=== PATIENT | male | born 1960 ===

== ENCOUNTER 2017-02-04 01:43 | Inpatient (IN) ==
[2017-02-04 02:33] LABS: MANUAL DIFF NEEDED? NO
[2017-02-04 02:36] LABS: BASO% 0.3 % (0.0-0.8); EOS# 0.14 X1000 (0.0-0.7); EOS% 0.8 % (0.0-10.0); HEMATOCRIT 45.9 % (42.0-52.0); HEMOGLOBIN 15.6 g/dL (14.0-18.0); IMM GRAN# 0.08 X1000 (0.0-0.04); IMM GRAN% 0.4 % (0.0-0.5); LYMPH# 3.26 X1000 (1.2-3.4); LYMPH% 17.6 % (20.5-51.1); MCV 88.3 FL (81-99); MONO# 1.81 X1000 (0.11-0.59); MONO% 9.8 % (1.7-9.3); MPV 10.4 FL (7.4-10.4); NEUT% 71.1 % (42.2-75.2); PLT 360 X1000 (130-400)
[2017-02-04 03:02] LABS: AGAP 24; ALBUMIN 4.3 g/dL (3.5-5.0); ALKALINE PHOSPHATASE 82 U/L (32-122); BUN 44 mg/dL (8-22); CALCIUM 9.4 mg/dL (8.8-10.2); CHLORIDE 92 mmol/L (98-107); COSMO 290; GOT 82 U/L (10-34); GPT 62 U/L (10-44); POTASSIUM 3.5 mmol/L (3.5-5.1); SODIUM 137 mmol/L (136-145); TCO2 21 mmol/L (25-35); TOTAL BILIRUBIN 1.45 mg/dL (0.20-1.00); TOTAL PROTEIN 8.8 g/dL (6.3-8.3)
[2017-02-04 03:46] LABS: FREE T4 2.09 ng/dL (0.93-1.70)
[2017-02-04] MEDS ORDERED: ADENOCARD IV ONE ×2 (04:00→04:13)
[2017-02-04] MEDS ORDERED: ADENOCARD ONE (04:01)
[2017-02-04] MEDS ORDERED: NS 3,000 ML ONE (04:03)
[2017-02-04 04:12] LABS: URINE SOURCE CLEAN CATCH
[2017-02-04] MEDS ORDERED: NS 2,000 ML IV ONE (04:13)
[2017-02-04 04:19] LABS: BILIRUBIN URINE NEGATIVE (NEGATIVE); BLOOD URINE TRACE (NEGATIVE); COLOR YELLOW; GLUCOSE URINE NEGATIVE (NEGATIVE); LEUKOCYTES URINE NEGATIVE (NEGATIVE); NITRITE URINE NEGATIVE (NEGATIVE); PH URINE 5.5; PROTEIN URINE 100 mg/dL (NEGATIVE); SP GRAVITY URINE 1.019; TURBIDITY URINE HAZY (CLEAR); UROBILINOGEN URINE NORMAL (NORMAL)
[2017-02-04 04:26] LABS: UR EPITHELIAL CELLS <10 /HPF (<10); URINE BACTERIA NEGATIVE /HPF; URINE CULTURE NEEDED? YES; URINE MICRO REVIEW NEEDED? YES; URINE RBC <10 /HPF (<10); URINE WBC TNTC /HPF (<10)
[2017-02-04 04:32] LABS: URINE CASTS NONE SEEN; URINE CRYSTALS NONE SEEN; URINE SMALL ROUND CELLS NONE SEEN
[2017-02-04 04:40] LABS: UR AMPHETAMINES QUAL PRESUMPTIVE POSITIVE (NONE DETECT); UR BARBITUATES QUAL NONE DETECTED (NONE DETECT); UR BENZODIAZEPIN QUAL NONE DETECTED (NONE DETECT); UR CANNABINOIDS QUAL NONE DETECTED (NONE DETECT); UR COCAINE QUAL NONE DETECTED (NONE DETECT); UR METHADONE QUAL NONE DETECTED (NONE DETECT); UR OPIATES QUAL NONE DETECTED (NONE DETECT); UR OXYCODONE QUAL NONE DETECTED (NONE DETECT); UR PCP QUAL NONE DETECTED (NONE DETECT)
[2017-02-04] MEDS ORDERED: NS 1,000 ML IV ONE (04:53)
--- NOTE | 2017-02-04 05:29 | EKG Report ---
Test Performed on : 02/04/2017 04:06:43 AM Test Reason : No Order in Visitar Blood Pressure : / mmHG Vent. Rate : 084 BPM Atrial Rate : 084 BPM P-R Int : 148 ms QRS Dur : 084 ms QT Int : 386 ms P-R-T Axes : 059 -51 060 degrees QTc Int : 456 ms Normal sinus rhythm. Left axis deviation Nonspecific ST abnormality Abnormal ECG When compared with ECG of 04-FEB-2017 03:57, (Unconfirmed) Vent. rate has decreased BY 78 BPM Criteria for Lateral infarct are no longer present T wave inversion no longer evident in Lateral leads Unconfirmed Result
--- NOTE | 2017-02-04 05:30 | PROVIDER DOCUMENTATION ---
HPI-Cardiac General - General Chief Complaint: General Adult Stated Complaint: general Time Seen by Provider: 02/04/17 03:27 Allergies/Adverse Reactions: Patient Allergies Allergy/AdvReac Type Severity Reaction Status Date / Time No Known Allergies Allergy Verified 02/27/16 10:30 Home Medications: Home Medication List Medication Instructions Recorded Confirmed Last Taken Type Albuterol Sulfate [Ventolin Hfa] 2 puff INH BID 02/15/14 02/04/17 02/03/17 History LISINOpril [Prinivil] 10 mg PO DAILY 02/15/14 02/04/17 02/03/17 History Albuterol 2.5MG/Ipratrop 0.5MG 3 ml INH RTQ4H #0 neb 02/19/14 02/04/17 Unknown Rx [Duoneb (A & A)] Metformin [Glucophage] 500 mg PO BID CC #0 tablet 10/17/14 02/04/17 02/03/17 Rx Insulin Humulin 70/30 [Humulin 34 unit SUBQ DAILY 02/27/16 02/04/17 02/03/17 History 70/30] Budesonide/Formoterol Fumarate 1 puff INH BID 02/04/17 02/04/17 02/03/17 History [Symbicort 160-4.5 Mcg Inhaler] - History of Present Illness-Cardiac Nature of Presenting Problem: This 56 yo white, obese male presents stating that he thought that he took LSD. he went into SVT and was converted with 12 mg of adenosine, had a creatitine of 5 and was given a fluid bolus for low BP and was finally stabalized. his renal insufficiency is new Review of Systems - Adult - REVIEW OF SYSTEMS - ADULT Constitutional: denies: chills, fever, night sweats Eyes: denies: discharge, blurred vision Ears, Nose, Mouth & Throat: denies: ear discharge, hearing loss, nose pain, throat pain Cardiovascular: denies: chest pain, heart murmur, syncope Respiratory: denies: chronic cough, dyspnea on exertion, pleurisy Gastrointestinal: denies: constipation, diarrhea, frequent heartburn Genitourinary: denies: dysuria, frequent UTI's, hesitency Musculoskeletal: denies: bone pain, joint pain, neck pain Integumentary: denies: hives, itching, nail changes Neurological: reports: no symptoms reported. denies: ataxia, paresthesia, slurred speech Psychiatric: reports: no symptoms reported. denies: anxiety, insomnia, panic attacks Endocrine: denies: goiter, cold intolerance, heat intolerance Hematologic/Lymphatic: denies: low blood count, lymphedema Allergic/Immunologic: denies: allergic reactions, eczema, frequent infections Past History - Adult - PAST MEDICAL HISTORY-ADULT Review of Records: reports: Nursing Assessment Review, Medications Reviewed Major Childhood Illnesses: reports: denies history Cardiovascular: reports: HTN Respiratory: reports: COPD Gastrointestinal: reports: denies history Genitourinary: reports: denies history Musculoskeletal: reports: denies history Neurological: reports: CVA Endocrine/Immune: reports: Diabetes Other Conditions: reports: denies history Additional History: Respitory failure; VRE penis 2014 - PRIOR SURGERIES/PROCEDURES Surgical/Procedure History: reports: other (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) - PRIOR HOSPITALIZATIONS Prior Hospitalizations: reports: for similar symptoms - IMMUNIZATION STATUS Childhood Immunizations: NUTD Flu Vaccine: NUTD - FAMILY HISTORY Family History: reviewed, not pertinent Physical Exam-General - PHYSICAL EXAM-ADULT Initial Vital Signs Reviewed: Yes - CONSTITUTIONAL General Appearance: appears well, alert, no apparent distress - EYES Eyes: PERRL/EOMI, pink conjunctivae - HEAD, EARS, NOSE, MOUTH & THROAT HENMT: normocephalic/atraumatic, moist mucous membranes, normal ENT inspection - NECK Neck: non-tender, full range of motion, supple, normal inspection - RESPIRATORY Respiratory: chest non-tender, lungs clear, normal breath sounds, no pleuratic chest pain, no respiratory distress, no accessory muscle use - CARDIOVASCULAR Cardiovascular: normal peripheral pulses, regular rate, rhythm, no edema, no gallop, no JVD, no murmur - GASTROINTESTINAL (ABDOMEN) Abdominal Exam: normal bowel sounds, non tender, soft, no organomegaly, no pulsatile mass, distended - LYMPHATIC Lymphatic: no adenopathy - MUSCULOSKELETAL Back Exam: normal inspection, no CVA tenderness, no vertebral tenderness Extremity: normal range of motion, non-tender, normal gait - SKIN Integumentary: normal color, normal turgor, warm/dry - NEUROLOGIC Neurologic: 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 II-XII nml as tested, grossly normal, no motor/sensory deficits Progress - PLAN OF CARE/RESULTS Progress/Plan/Lab Results: Vital Signs - 8 hr 02/04/17 01:55 02/04/17 03:30 02/04/17 04:05 Temperature 97.5 F L Pulse Rate 84 171 H 159 H Respiratory Rate 22 23 30 H Blood Pressure 129/84 143/120 173/77 O2 Sat by Pulse Oximetry 93 L 90 L 86 L 02/04/17 04:08 02/04/17 04:09 02/04/17 04:10 Temperature Pulse Rate 158 H 85 86 Respiratory Rate 21 20 23 Blood Pressure 173/77 83/56 83/56 O2 Sat by Pulse Oximetry 96 96 96 02/04/17 04:20 02/04/17 04:30 02/04/17 04:44 Temperature Pulse Rate 83 81 82 Respiratory Rate 28 H 22 18 Blood Pressure 74/56 60/38 93/39 O2 Sat by Pulse Oximetry 96 92 L 95 02/04/17 05:11 Temperature Pulse Rate 86 Respiratory Rate 16 Blood Pressure 106/77 O2 Sat by Pulse Oximetry 96 Laboratory Results - last 24 hr 02/04/17 02/04/17 02/04/17 00:00 00:00 01:58 WBC RBC Hgb Hct MCV MCH MCHC RDW Std Deviation Plt Count MPV Immature Gran % (Auto) Neut % (Auto) Lymph % (Auto) [place] % (Auto) Eos % (Auto) Baso % (Auto) Immature Gran # (Auto) Neut # (Auto) Lymph # (Auto) [place] # (Auto) Eos # (Auto) Baso # (Auto) Sodium Potassium Chloride Carbon Dioxide Anion Gap BUN Creatinine BUN/Creatinine Ratio Glucose POC Glucose 174 H Calculated Osmolality Calcium Total Bilirubin AST ALT Alkaline Phosphatase Total Protein Albumin Globulin Albumin/Globulin Ratio Vitamin B12 TSH Free T4 Urine Source CLEAN CATCH Urine Color YELLOW Urine Turbidity HAZY Urine pH 5.5 Ur Specific Sun 1.019 Urine Protein 100 A Ur Glucose (Stick) NEGATIVE Ur Ketones (Stick) NEGATIVE Urine Blood TRACE A Urine Nitrite NEGATIVE Urine Bilirubin NEGATIVE Urobilinogen Dipstick NORMAL Urine Leukocytes NEGATIVE Urine WBC (Auto) TNTC A Urine RBC (Auto) <10 U Epithel Cells (Auto) <10 Urine Bacteria (Auto) NEGATIVE Urine Crystals NONE SEEN Small Round Cells NONE SEEN Urine Casts NONE SEEN Urine Yeast-like Cells NONE SEEN Urine Opiates Screen NONE DETECTED Ur Oxycodone Screen NONE DETECTED Ur Methadone, Qual NONE DETECTED Ur Barbiturates Screen NONE DETECTED Ur Phencyclidine Scrn NONE DETECTED Ur Amphetamines Screen PRESUMPTIVE POSITIVE A U Benzodiazepines Scrn NONE DETECTED Urine Cocaine Screen NONE DETECTED U Cannabinoids Screen NONE DETECTED Plasma/Serum Ethyl Alc 02/04/17 02/04/17 02/04/17 02:00 02:00 02:00 WBC RBC Hgb Hct MCV MCH MCHC RDW Std Deviation Plt Count MPV Immature Gran % (Auto) Neut % (Auto) Lymph % (Auto) [place] % (Auto) Eos % (Auto) Baso % (Auto) Immature Gran # (Auto) Neut # (Auto) Lymph # (Auto) [place] # (Auto) Eos # (Auto) Baso # (Auto) Sodium 137 Potassium 3.5 Chloride 92 L Carbon Dioxide 21 L Anion Gap 24 BUN 44 H Creatinine 3.4 H BUN/Creatinine Ratio 13 Glucose 181 H POC Glucose Calculated Osmolality 290 Calcium 9.4 Total Bilirubin 1.45 H AST 82 H ALT 62 H Alkaline Phosphatase 82 Total Protein 8.8 H Albumin 4.3 Globulin 4.5 Albumin/Globulin Ratio 1.0 Vitamin B12 321 TSH 5.13 H Free T4 2.09 H Urine Source Urine Color Urine Turbidity Urine pH Ur Specific Sun Urine Protein Ur Glucose (Stick) Ur Ketones (Stick) Urine Blood Urine Nitrite Urine Bilirubin Urobilinogen Dipstick Urine Leukocytes Urine WBC (Auto) Urine RBC (Auto) U Epithel Cells (Auto) Urine Bacteria (Auto) Urine Crystals Small Round Cells Urine Casts Urine Yeast-like Cells Urine Opiates Screen Ur Oxycodone Screen Ur Methadone, Qual Ur Barbiturates Screen Ur Phencyclidine Scrn Ur Amphetamines Screen U Benzodiazepines Scrn Urine Cocaine Screen U Cannabinoids Screen Plasma/Serum Ethyl Alc 02/04/17 02:00 WBC 18.53 H RBC 5.20 Hgb 15.6 Hct 45.9 MCV 88.3 MCH 30.0 MCHC 34.0 RDW Std Deviation 13.4 Plt Count 360 MPV 10.4 Immature Gran % (Auto) 0.4 Neut % (Auto) 71.1 Lymph % (Auto) 17.6 L [place] % (Auto) 9.8 H Eos % (Auto) 0.8 Baso % (Auto) 0.3 Immature Gran # (Auto) 0.08 H Neut # (Auto) 13.19 H Lymph # (Auto) 3.26 [place] # (Auto) 1.81 H Eos # (Auto) 0.14 Baso # (Auto) 0.05 Sodium Potassium Chloride Carbon Dioxide Anion Gap BUN Creatinine BUN/Creatinine Ratio Glucose POC Glucose Calculated Osmolality Calcium Total Bilirubin AST ALT Alkaline Phosphatase Total Protein Albumin Globulin Albumin/Globulin Ratio Vitamin B12 TSH Free T4 Urine Source Urine Color Urine Turbidity Urine pH Ur Specific Sun Urine Protein Ur Glucose (Stick) Ur Ketones (Stick) Urine Blood Urine Nitrite Urine Bilirubin Urobilinogen Dipstick Urine Leukocytes Urine WBC (Auto) Urine RBC (Auto) U Epithel Cells (Auto) Urine Bacteria (Auto) Urine Crystals Small Round Cells Urine Casts Urine Yeast-like Cells Urine Opiates Screen Ur Oxycodone Screen Ur Methadone, Qual Ur Barbiturates Screen Ur Phencyclidine Scrn Ur Amphetamines Screen U Benzodiazepines Scrn Urine Cocaine Screen U Cannabinoids Screen Plasma/Serum Ethyl Alc Orders Category Date Time Status ALCOHOL BLOOD Stat Lab 02/04/17 02:00 Completed CBC WITH ELECTRONIC DIFF [HEME] Stat Lab 02/04/17 02:00 Completed COMPREHENSIVE METABOLIC PANEL [CHEM] Stat Lab 02/04/17 02:00 Completed FREE T4 Stat Lab 02/04/17 02:00 Completed TSH Stat Lab 02/04/17 02:00 Completed URINALYSIS W/POSS RFLX CULT [URINALYSIS] Stat Lab 02/04/17 00:00 Completed URINE CULTURE [RM] Routine Lab 02/04/17 04:32 Received URINE DRUG SCREEN Stat Lab 02/04/17 00:00 Completed URINE MANUAL MICROSCOPIC [URINALYSIS] Stat Lab 02/04/17 00:00 Completed VITAMIN B12 Stat Lab 02/04/17 02:00 Completed 0.9% Sodium Chloride Inj [Ns] 1,000 ml Med 02/04/17 04:03 Discontinued .ROUTE As Directed 0.9% Sodium Chloride Inj [Ns] 1,000 ml Med 02/04/17 04:53 Active IV 999 mls/hr 0.9% Sodium Chloride Inj [Ns] 2,000 ml Med 02/04/17 04:13 Active IV 999 mls/hr Adenosine [Adenocard] Med 02/04/17 04:13 Discontinued 12 mg IV NOW ONE Adenosine [Adenocard] Med 02/04/17 04:01 Discontinued 6 mg .ROUTE .STK-MED ONE Adenosine [Adenocard] Med 02/04/17 04:00 Discontinued 6 mg IV NOW ONE Rocephin 1 gm/Ns IV Q24h Med 02/04/17 05:45 Ordered CefTRIAXONE 1 GM/NS [Rocephin 1 gm/Ns] 1 gm in 50 ml IV Q24H EKG [EKG] Routine Ther 02/04/17 04:06 Draft Result Diagrams: 02/04/17 02:00 02/04/17 02:00 Departure - Departure Time of Disposition Decision: 05:37 DIAGNOSIS: Pyelonephritis, SVT (supraventricular tachycardia), Hyperthyroidism, Renal insufficiency, Drug abuse, amphetamine type Disposition: ADMITTED INPATIENT 09 Certified Medical Emergency: Emergent Condition: Fair Referrals and Follow-Ups: None,PCP [Primary Care Provider] -
[2017-02-04] MEDS: ROCEPHIN 1 GM/NS 1 GM/50 ML IVPB IV SCH (05:45)
--- NOTE | 2017-02-04 07:36 | Diag Imaging Result Document ---
PROCEDURE NAME: CHEST-PORTABLE - 02/04/2017 PORTABLE CHEST X-RAY: COMPARISON: 01/01/2017. FINDINGS: There is borderline cardiomegaly. Pulmonary vascularity is normal. No focal infiltrates. No pneumothorax or pleural effusion. IMPRESSION: Borderline cardiomegaly but, otherwise, no acute disease.
[2017-02-04 10:34] LABS: ALLEN TEST YES; BE -4.5 mmoll (-3.0-3.0); BLOOD TYPE ARTERIAL; DRAW SITE R RADIAL; METHB 1.4 % (0.0-1.5); O2(CT) 18.8 mL/dL (15.0-23.0); PCO2(98.6) 36 mmHg (35-45); PO2(98.6) 92 mmHg (60-100); SAMPLE BLOOD; SAO2 97.9 % (95.0-100.0); pH(98.6) 7.36 (7.35-7.45)
[2017-02-04 10:35] LABS: MODALITY CANNULA
--- NOTE | 2017-02-04 10:53 | HISTORY AND PHYSICAL ---
PRIMARY CARE PROVIDER: He goes to [facility]. HISTORY OF PRESENT ILLNESS: Mr. 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 Urine drug screen revealed that he had positive amphetamines. Patient states he took a medication that was like LSD. He is very difficult to get information, a very disorganized conversation, so information was gathered from patient's old medical records and ER documentation. Apparently, he also had some SVT with a heart rate that jumped up to 171 that required 2 doses of adenosine, one 6 mg and one 12 mg, which converted him to sinus rhythm, rate in the 70s and 80s. He was also found to have EVERARDO with rhabdomyolysis, some hypotension for a short little while that required IV fluid bolus, but no pressors. Looks like his blood pressure got down to as low as 60/38. He also has an elevated white blood cell count of 18,000, but he denied fever or chills. Denied nausea, vomiting, or diarrhea. He had a chest x-ray that suggested borderline cardiomegaly, but no acute disease. He has had cultures and urinalysis was negative for urinary tract infection. Although it was positive for white blood cells, it was negative for bacteria. Given his erratic behavior and risk for withdrawal, will admit to the ICU for close monitoring. PAST MEDICAL HISTORY: Hypertension, COPD, diabetes mellitus, and morbid obesity. 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 FAMILY HISTORY: Positive for cancer. SOCIAL HISTORY: Apparently, he has been smoking cigarettes 1 pack per day for 40+ years. He denies alcohol or illicit drug use, although records showed that he told them he took a medication that was like LSD. ALLERGIES: None known drug allergies. HOME MEDICATIONS: Albuterol and Atrovent nebulizations, albuterol inhaler, Symbicort inhaler twice a day, 70/30 insulin 34 units subcutaneously daily, Lisinopril 10 mg p.o. daily, Metformin 500 mg p.o. twice daily. REVIEW OF SYSTEMS: Difficult to obtain. LABORATORY DATA: White blood cells 18,000, hemoglobin 15, hematocrit 45, platelet count 360,000. Sodium 137, potassium 3.5, BUN 44, creatinine 3.4, glucose 181. Bilirubin is 1.45, AST 82, ALT 62. CK 1365. Total protein is 8.8. Troponin is less than 0.01. Urinalysis: 100 protein, trace blood, and too numerous to count white blood cells. Urine drug screen positive for amphetamines. Alcohol negative. IMAGING: Chest x-ray: Mild cardiomegaly, but no acute findings. ELECTROCARDIOGRAM: Normal sinus rhythm, rate 85, QTc 456. PHYSICAL EXAMINATION: VITAL SIGNS: Temperature on admission was 97.5 degrees, heart rate 88, respiratory rate 25, blood pressure 123/54, 95% saturation on 2L nasal cannula neck. GENERAL: Mr. Santos is a 56-year-old obese male. He is in mild distress, very erratic in physical movements, very jerky, random speech, and difficult to concentrate on questions being asked. HEENT: Atraumatic, normocephalic. Pupils equal, round, reactive to light. Mucous membranes are dry. NECK: No JVD or carotid bruits. CARDIOVASCULAR: S1 and S2. Regular rate and rhythm. No rubs, gallops, or murmurs. PULMONARY: Clear to auscultation. Bilateral breath sounds. No accessory muscle use or work of breathing noted. GASTROINTESTINAL: Obese, soft, nontender, nondistended. Positive bowel sounds x4. EXTREMITIES: Some old abrasions on the ends of his toes. He had +2 dorsalis pedal pulses. Trace lower extremity edema. Radial pulses +2. NEUROLOGIC: Oriented to name. Erratic conversation. He did follow commands. SKIN: Warm, dry, intact, except for abrasions on end of toes. ASSESSMENT AND PLAN: 1. 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 Could be having some withdrawal signs now. He is very erratic with physical movements and erratic with verbal responses. We will transfer to the ICU for close monitoring. 2. Acute kidney injury with rhabdomyolysis. He will receive IV fluid hydration. We will do renal studies and check daily CKs. 3. Tobacco abuse. Cessation discussed. 4. He had nonsustained supraventricular tachycardia after receiving adenosine, converted to normal sinus rhythm. We will do echocardiogram in the morning, keep electrolytes normal. Likely, this is secondary to amphetamine use. Patient states he is not sure if he has a history of irregular heartbeat. 5. Transaminitis hyperbilirubinemia. This is secondary to hypotensive spell. His blood pressure dropped to the 60s at one point, but improved after IV fluid hydration, not requiring pressors. 6. Hypertension history. Will hold his MARA inhibitor. 7. Chronic obstructive pulmonary disease. Possible exacerbation. Will order a stat ABG. He is somewhat hyperventilating and is requesting for oxygen to go home on. 8. Diabetes mellitus, type 2. We will do pattern blood glucoses and sliding scale insulin. Diabetic diet. 9. Leukocytosis could be all inflammatory, given the hypotension, the kidney dysfunction, and the use of amphetamines. Will continue Rocephin for now, and follow up on blood cultures and urine culture. 10. Metabolic and toxic encephalopathy. Hopefully, will improve over time. 11. Deep venous thrombosis prophylaxis. Heparin subcutaneously q.12 hours. 12. Gastrointestinal prophylaxis. Proton pump inhibitor. Dictated by ERICH Darby for Mario Reid MD cc: ERICH Darby MD
[2017-02-04] MEDS ORDERED: ZOFRAN IV PRN (14:10)
[2017-02-04] MEDS: HUMULIN R SUBQ SCH ×3 (15:02→20:02)
[2017-02-04] MEDS: XOPENEX NEB INH SCH ×3 (15:10→22:52)
[2017-02-04 16:00] LABS: UR CREAT RANDOM 189.6 mg/dL (14-26)
[2017-02-04 17:12] LABS: ALLEN TEST YES; BE 0.1 mmoll (-3.0-3.0); BLOOD TYPE ARTERIAL; DRAW SITE R RADIAL; METHB 1.3 % (0.0-1.5); O2(CT) 17.3 mL/dL (15.0-23.0); PCO2(98.6) 43 mmHg (35-45); PO2(98.6) 68 mmHg (60-100); SAMPLE BLOOD; SAO2 95.7 % (95.0-100.0); THB 13.2 g/dL (11.5-17.4); pH(98.6) 7.38 (7.35-7.45)
[2017-02-04 17:13] LABS: MODALITY CANNULA
--- NOTE | 2017-02-04 18:29 | Diag Imaging Result Document ---
PROCEDURE NAME: CT THORAX W/O CONTRAST - 02/04/2017 CT OF THE CHEST WITHOUT CONTRAST: FINDINGS: There is mild coronary calcification. There is a fair amount of retained gastric contents. There is a calcified gallstone in a nondistended gallbladder. The liver is somewhat nodular in contour. The spleen is not enlarged. There are no abnormal fluid collections. There is no evidence of significant adenopathy. There is a small ground glass opacity laterally in the left upper lobe on image 35 measuring less than 7 mm in diameter. The significance of this finding is unclear. There is some atelectasis in the medial inferior right middle lobe versus fibrosis. A similar appearance is present in the inferior lingula. Otherwise, there is no evidence of pulmonary parenchymal consolidation. IMPRESSION: 1. No evidence of acute pulmonary parenchymal disease. 2. The possibility of mild cirrhosis is suggested. 3. Cholelithiasis. 4. Mild gastric distention.
[2017-02-04] MEDS ORDERED: PULMICORT INH SCH (19:30)
[2017-02-04] MEDS: ATIVAN IV PRN (19:52)
[2017-02-04] MEDS: HEPARIN SUBQ SCH (20:01)
[2017-02-04] MEDS: PRILOSEC PO SCH (20:01)
[2017-02-05] MEDS: ATIVAN IV PRN ×2 (01:22→15:00)
[2017-02-05] MEDS: XOPENEX NEB INH SCH ×4 (03:56→20:03)
[2017-02-05] MEDS: ROCEPHIN 1 GM/NS 1 GM/50 ML IVPB IV SCH (04:57)
[2017-02-05 05:45] LABS: MANUAL DIFF NEEDED? NO
[2017-02-05 05:56] LABS: BASO% 0.4 % (0.0-0.8); EOS# 0.42 X1000 (0.0-0.7); EOS% 5.1 % (0.0-10.0); HEMATOCRIT 39.6 % (42.0-52.0); HEMOGLOBIN 13.2 g/dL (14.0-18.0); IMM GRAN# 0.03 X1000 (0.0-0.04); IMM GRAN% 0.4 % (0.0-0.5); LYMPH# 1.96 X1000 (1.2-3.4); LYMPH% 23.6 % (20.5-51.1); MCH 30.4 PG (27-31); MCHC 33.3 g/dL (33-37); MCV 91.2 FL (81-99); MPV 10.5 FL (7.4-10.4); NEUT% 58.5 % (42.2-75.2); PLT 252 X1000 (130-400); RBC 4.34 XMIL (4.7-6.1)
[2017-02-05 06:03] LABS: INR 0.96; PROTIME 10.1 Seconds (9.2-11.7); PTT 29.5 Seconds (22.0-36.0)
[2017-02-05 06:14] LABS: ALBUMIN 3.3 g/dL (3.5-5.0); ALKALINE PHOSPHATASE 62 U/L (32-122); DIRECT BILIRUBIN < 0.20 mg/dL (0.00-0.20); GOT 46 U/L (10-34); GPT 44 U/L (10-44); TOTAL BILIRUBIN 0.46 mg/dL (0.20-1.00); TOTAL PROTEIN 6.9 g/dL (6.3-8.3)
--- NOTE | 2017-02-05 06:46 | EKG Report ---
Test Performed on : 02/05/2017 05:43:56 AM Test Reason : chest pain Blood Pressure : / mmHG Vent. Rate : 079 BPM Atrial Rate : 079 BPM P-R Int : 144 ms QRS Dur : 090 ms QT Int : 388 ms P-R-T Axes : 055 -31 050 degrees QTc Int : 444 ms Normal sinus rhythm. Left axis deviation Abnormal ECG When compared with ECG of 04-FEB-2017 04:06, No significant change was found Confirmed by Micha GOMEZ, Yasmany Grullon ([id number]) on 02/07/2017 9:21:51 PM
[2017-02-05] MEDS: HUMULIN R SUBQ SCH ×4 (07:04→20:20)
[2017-02-05] MEDS: PRILOSEC PO SCH ×2 (07:13→20:19)
--- NOTE | 2017-02-05 08:00 | CONSULTATION ---
DATE OF CONSULTATION: 02/05/2017 HISTORY: Mr. Santos is 56 years old. He has some abnormal movements, prompting request for neurology consultation. History from the patient is that he used to have these kind of movements for a few days when he would "be coming down" after using methamphetamine. He stopped all illicit drug use in 2010 by his report. He believes that someone "laced something" and he inadvertently ingested or inhaled methamphetamine two or three days ago. He reports his current appearance is identical to what he has experienced in the past following methamphetamine use. He reports no previous history of diagnosed stroke, seizure, serious head injury , other neurologic event. His lab work this admission shows initial WBC count 18,000, later 8000. Chemistry showed elevated BUN and creatinine, glucose 181, mildly elevated liver enzymes, elevated free T4 2.09 and TSH 5.13, and drug screen positive only for amphetamine. There is a past history of hypertension, diabetes mellitus, COPD. He does not know of a past history of dyslipidemia or thyroid disease. On exam, he is awake, alert, attentive. He answered questions appropriately. His speech is a little bit garbled but can be understood. He did not have any trouble following simple commands or understanding language. I did not test his cognitive function thoroughly. He is oriented. Head and neck are unremarkable. Visual hill are full tested by confrontational finger counting. He has full lateral and vertical eye movements. Facial motility is good bilaterally with some asymmetry around the nasolabial fold but no significant motility defect. Gag is intact. Tongue is midline. Palate is midline. Shoulder shrug is good bilaterally. He has good power in the arms and legs. Tone is equal in the limbs. He did well on [id number] testing. I did not test his gait. He reports diminished pinprick and light touch appreciation in a stocking pattern bilaterally. He has good pinprick appreciation over the hands. Reflexes are 1 + at the wrists and absent at the ankles. Plantar response is silent bilaterally. There is irregular, arrhythmic movement in the limbs and trunk. This is somewhat choreiform. There is not typical of myoclonus, asterixis, or classifiable tremor and does not appear to be punding. IMPRESSION: Hyperkinetic movement, likely related to amphetamine, question of intoxication vs withdrawal syndrome. This may be more protracted than what he has experienced in the past based on his increased age, diabetes mellitus, chronic obstructive pulmonary disease, and uncertainty regarding the recent dose of amphetamine. I do not have any urgent suggestion from a neurologic standpoint. We can continue to monitor clinically. If this syndrome does not resolve with conservative management in the next day or two, we might consider cautious trial with dopamine marlin medicines. He reports never using that class of medicines before. Thanks for asking me to see Mr. Santos. cc: MD JEAN CLAUDE Valdez III
[2017-02-05] MEDS: HEPARIN SUBQ SCH ×2 (08:16→20:19)
--- NOTE | 2017-02-05 08:46 | Diag Imaging Result Document ---
PROCEDURE NAME: US RENAL 2 (RETROPER) COMPLETE - 02/05/2017 RENAL ULTRASOUND, 02/05/2017: COMPARISON: CT abdomen and pelvis 09/05/2014. FINDINGS: The kidneys and urinary bladder are normal. No hydronephrosis or hydroureter. There is a Estrada catheter in the urinary bladder. The right kidney measures 11.7 x 6.9 x 6.2 cm. Cortex measures 1.2 cm. The left kidney measures 11.7 x 5.8 x 6.2 cm. Cortex measures 1.6 cm. IMPRESSION: Negative exam.
[2017-02-05] MEDS: NORVASC PO SCH ×2 (10:05→20:19)
[2017-02-05] MEDS: NS 1,000 ML IV SCH ×2 (10:05→16:56)
--- NOTE | 2017-02-05 10:27 | PROGRESS NOTE ---
DATE: 02/05/2017 SUBJECTIVE: Patient reports feeling less shaky. Denies any headache, any shortness of breath or chest pain. OBJECTIVE: Vital Signs: Temperature 98.3 degrees, heart rate 79, respiratory rate 24, blood pressure 176/87, O2 saturation 93% on 2 L nasal cannula. General Examination: This is a 56-year- old, obese and disheveled male, lying in bed in no acute distress. HEENT: Head is normocephalic, atraumatic. Anicteric sclerae and pale conjunctivae. Mucous membranes dry. Neck: Supple. No JVD noted. No carotid bruits. No lymphadenopathy. No thyromegaly. Cardiovascular exam: S1, S2 heard. No murmurs, gallops, or rubs. Regular rate and rhythm. Respiratory exam: Clear bilaterally to auscultation. Mildly decreased breath sounds globally. Patient is not using any accessory muscles or having work of breathing. Abdomen: Soft, obese, nontender to palpation. Nondistended. Bowel sounds present. No organomegaly. Extremities: Some old abrasions on the end of his toes. Peripheral pulses present in both legs. No clubbing, cyanosis, mild edema in both lower extremities. Neurological exam: Oriented to name. Patient moves 4 extremities. Follows commands LABORATORY DATA: White cell count 8.31, hemoglobin 13.2, hematocrit 39.6, platelets 252. Magnesium 2.0, albumin 3.3. BMP still pending. ASSESSMENT AND PLAN: 1. Amphetamine overdose. Patient now is feeling better. Yesterday, she was very shaky. He was evaluated by Dr. Hensley. He thinks that this could be involuntary movement that this patient was showing yesterday, related to either amphetamine intoxication versus withdrawal. In any case, we are going to continue with the same management with intravenous fluids, but definitely clinically improving. 2. Acute kidney injury. Labs are still pending. We are going to continue with intravenous fluids, normal saline at 150 mL/hour. 3. Transaminitis most likely related to alcohol abuse. We are going to check hepatic profile tomorrow. 4. Hypertension. Patient was on lisinopril 10 mg one tablet oral daily, but because of this acute kidney injury we prefer to hold it because the blood pressure has been going to 170s and 180s. Will change to amlodipine 5 mg one tablet oral twice daily. 5. Chronic obstructive pulmonary disease. At this point, does not look to be in any exacerbation. His oxygen needs are coming down quickly and today he is requiring 2 liters of oxygen by nasal cannula. We are going to wean off oxygen and I think the patient is going to tolerate that. 6. Diabetes mellitus type 2. We will continue with insulin sliding scale. 7. Leukocytosis. That condition could be all inflammatory given the hypotension, renal dysfunction, and use of amphetamines today. The white cell count is back to normal. Currently he is on Rocephin, and we are going to follow blood cultures and urine culture as well. 8. Toxic encephalopathy. That condition is resolving. 9. Episodes of supraventricular tachycardia. Patient has received adenosine in the emergency room and has converted to normal sinus rhythm. We have ordered an echocardiogram that at the time of my dictation is still pending. We will follow the results. cc: Mario Reid MD
[2017-02-05 10:28] LABS: AGAP 11; BUN 26 mg/dL (8-22); CALCIUM 8.2 mg/dL (8.8-10.2); CHLORIDE 102 mmol/L (98-107); COSMO 284; POTASSIUM 4.6 mmol/L (3.5-5.1); SODIUM 139 mmol/L (136-145); TCO2 26 mmol/L (25-35)
--- NOTE | 2017-02-05 14:52 | ECHO REPORT ---
ORDER DATE: 02/04/2017 INTERPRETING PHYSICIAN: Dr. Efe New. ECHOCARDIOGRAPHIC MEASUREMENTS: 1. Interventricular septum 0.9 cm. 2. Left ventricular posterior wall 0.9 cm. 3. Diastolic diameter 4.8 cm. 4. Left atrium 4.0 cm. 5. Aorta 3.5 cm. SUMMARY OF THE 2-DIMENSIONAL IMAGIN. Technically suboptimal study. Poor acoustic window. Normal left ventricular cavity size. Estimated ejection fraction of 65%. 2. Aortic valve leaflets are trileaflet. Mitral valve was normal. Pulmonic valve not well visualized. Tricuspid valve was normal. 3. Peak velocity across the aortic valve less than 2 m/sec. There is no aortic stenosis or regurgitation. There is [id number] mitral regurgitation. 4. There is mild tricuspid regurgitation. Peak velocity across the tricuspid valve was 2 m/sec. 5. There is no pericardial effusion or obvious intracardiac mass or thrombus seen. cc: MD Jacquelin Castellanos CRNP
[2017-02-05] MEDS ORDERED: MORPHINE IV PRN (15:58)
[2017-02-05] MEDS ORDERED: SYMBICORT 160/4.5 MICROGM INHALER INH SCH (19:30)
[2017-02-06] MEDS: NS 1,000 ML IV SCH ×2 (00:14→06:53)
[2017-02-06] MEDS: ROCEPHIN 1 GM/NS 1 GM/50 ML IVPB IV SCH (05:52)
[2017-02-06] MEDS: PRILOSEC PO SCH ×2 (05:53→06:56)
[2017-02-06] MEDS: HUMULIN R SUBQ SCH ×2 (06:55→11:01)
--- NOTE | 2017-02-06 08:39 | PROGRESS NOTE ---
DATE: 02/06/2017 Mr. Santos was initially asleep, easily waked, alert and attentive. He answered questions appropriately. I did not see any definite abnormal movement during my time at the bedside. He reports the abnormal movement present yesterday has stopped. 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 I encouraged him to be aggressive with management of his blood sugar and medical problems, and to avoid illicit drug use. I do not have any other suggestion right now from neurologic standpoint. Thanks for asking me to see Mr. Santos. cc: Kirby Hensley III, MD [facility]
[2017-02-06] MEDS: NORVASC PO SCH (09:01)
[2017-02-06] MEDS: HEPARIN SUBQ SCH (09:01)
[2017-02-06 09:50] LABS: MANUAL DIFF NEEDED? NO
[2017-02-06 09:54] LABS: BASO% 0.5 % (0.0-0.8); EOS% 4.5 % (0.0-10.0); HEMATOCRIT 42.2 % (42.0-52.0); HEMOGLOBIN 13.5 g/dL (14.0-18.0); IMM GRAN# 0.03 X1000 (0.0-0.04); IMM GRAN% 0.3 % (0.0-0.5); LYMPH% 23.8 % (20.5-51.1); MCH 29.9 PG (27-31); MCV 93.4 FL (81-99); MONO# 0.74 X1000 (0.11-0.59); MONO% 8.4 % (1.7-9.3); MPV 10.3 FL (7.4-10.4); NEUT% 62.5 % (42.2-75.2); PLT 235 X1000 (130-400); RBC 4.52 XMIL (4.7-6.1)
[2017-02-06 10:11] LABS: AGAP 10; BUN 16 mg/dL (8-22); CALCIUM 8.4 mg/dL (8.8-10.2); CHLORIDE 104 mmol/L (98-107); COSMO 284; POTASSIUM 4.9 mmol/L (3.5-5.1); SODIUM 141 mmol/L (136-145); TCO2 27 mmol/L (25-35)
[2017-02-06 11:50] VITALS: BP 116/69
--- NOTE | 2017-02-08 06:39 | DISCHARGE SUMMARY ---
ADMISSION DATE: 02/04/2017 DISCHARGE DATE: 02/06/2017 CONSULTATIONS: Dr. Kirby Hensley with neurology. PERTINENT PROCEDURES: 1. Echocardiogram showed an EF of 65%. 2. Chest CT showed no evidence of acute pulmonary parenchymal disease possibility of mild cirrhosis is suggested, cholelithiasis and mild gastric distention. 3. Renal ultrasound, negative. DISCHARGE DIAGNOSES: 1. Amphetamine overdose clinically improved. 2. Acute kidney injury, improved. 3. Transaminitis secondary to alcohol abuse. Improving. 4. Hypertension. Patient's MARA was discontinued secondary to his acute kidney injury. He was switched to Norvasc, improved. 5. Chronic obstructive pulmonary disease without exacerbation. 6. Diabetes mellitus type 2. Continue with metformin. 7. Leukocytosis resolved. 8. Toxic encephalopathy. Resolved. 9. Toxic metabolic encephalopathy, resolved. 10. Episode of supraventricular tachycardia. The patient received adenosine in the ED. He has converted to normal sinus rhythm. Echocardiogram showed an EF 65%. HOSPITAL COURSE: Briefly, Mr. Santos is a 56-year-old, male with a history of morbid obesity, hypertension, COPD, diabetes mellitus type 2. Presented in the golf course assistant with signs and symptoms of altered mental status. Urine drug screen revealed that he had positive amphetamines. Patient state that he took medication that was like LSD, it was very difficult to obtain information from him at that time. He was very disorganized in conversation. Also while he is in the ED, he had some SVT where his heart rate jumped up to 171 that required 2 doses of adenosine one at 6 mg and one at 12. He then converted to sinus rhythm in the 70s and 80s. He was also found to have an acute kidney injury with rhabdomyolysis and hypotension for a short while that required IV fluid bolus but no pressors. Blood pressure got down as low as 60/38. He had an elevated white count but no fever or chills. No nausea, vomiting, or diarrhea. Chest x- ray suggested borderline cardiomegaly. No acute disease. He had cultures and urinalysis was negative for urinary tract infection. The patient was admitted to the ICU for close monitoring given his erratic behavior. He was started on aggressive IV fluid hydration for his acute kidney injury and rhabdomyolysis with trended renal studies and daily CKs. He was monitored on telemetry. Dr. Hensley was also consulted for his abnormal movements. He felt it was likely related to the amphetamines. Patient's symptoms did improve. He did become alert and attentive. He was able to answer questions appropriately. There were no definite abnormal movements seen. He has been encouraged daily to avoid illicit drugs. His acute kidney injury and rhabdomyolysis resolved. His blood pressure medication was changed from lisinopril to Norvasc. He was continued on metformin for his diabetes. Patient is being discharged home today. Dr. Zuluaga did want the patient to be discharged on Levaquin 500 mg p.o. daily for the next 5 days. VITAL SIGNS: Temperature 98.1 degrees, heart rate 76, respirations 20, blood pressure 116/69, O2 is 100%. DISCHARGE DIET: Diabetic. DISCHARGE MEDICATIONS: 1. DuoNeb 3 mL inhaled RT q.4 hours. 2. Ventolin inhaler 2 puffs inhaled b.i.d. 3. Norvasc 5 mg p.o. b.i.d. 4. Symbicort 164.5 mcg inhaler 1 puff inhaled daily. 5. Humulin 70/30, 34 units subcu daily. 6. Levaquin 500 mg p.o. daily. 7. Metformin 500 mg p.o. b.i.d. FOLLOWUP: The patient is being discharged home. He will need to follow up with the primary care physician that has been provided to him in the next 7-10 days. Patient to return to the ED for any worsening of symptoms. TIME SPENT: Thirty five minutes. Dictated by ERICH Blair for Mario Reid MD cc: Mario Reid MD MTDD
== END 2017-02-06 13:09 | disposition home or self-care (01) ==
LOC: ED 01:43 → EDIPHOLD 09:57 → SUATTDRO 09:57 → ICU 13:25 → 4N 02-06 02:02
PROVIDERS: ATTEND Internal Medicine